=== PATIENT | male | born 1985 | race Caucasian/White ===

== ENCOUNTER 2018-05-28 13:57 | Emergency (ER) | payer BC ==
--- NOTE | 2018-05-28 14:58 | CR ---
Chest: Two views of the chest were obtained. Comparison: No prior chest x-ray. Heart size and mediastinum are normal. Lungs are clear. Bony structures are unremarkable. Impression: 1. Nothing acute is seen on two- view chest x-ray. Diagnostic code #1
--- NOTE | 2018-05-28 15:45 | EDM.PDOC ---
ED HPI GENERAL MEDICAL PROBLEM - General Chief Complaint: Chest Pain Stated Complaint: RAUL CHILDERS TO GET A EKG Time Seen by Provider: 05/28/18 14:06 Source of Information: Reports: Patient History Limitations: Reports: No Limitations - History of Present Illness INITIAL COMMENTS - FREE TEXT/NARRATIVE: The patient presents with left sided chest pain. The pain comes and goes and it is not associated with exertion. He has some shortness of breath at times. He has a slight cough. He has no congestion or runny nose. He has no abdominal pain, nausea or vomiting. He bess snot smoke. He has no history of hypertension, diabetes or hypercholesterolemia. He does have a family history of heart disease. His father had a double bypass recently. He went to the walk in clinic and they told him to come here. This started a few weeks ago. He also has some pain in his arms at times but he associates this with heavy lifting he is doing at work. Onset: Gradual Duration: Week(s): Location: Reports: Chest Quality: Reports: Sharp Severity: Moderate Improves with: Reports: None Worsens with: Reports: None Associated Symptoms: Reports: Chest Pain, Cough, Shortness of Breath. Denies: Fever/Chills, Headaches, Nausea/Vomiting Chest Pain Score (Numeric/FACES): 4 - Related Data Allergies Allergy/AdvReac Type Severity Reaction Status Date / Time pollen extracts Allergy Sneezing Verified 05/28/18 14:17 Past Medical History Psychiatric History: Reports: Anxiety Social & Family History - Tobacco Use Smoking Status *Q: Never Smoker - Caffeine Use Caffeine Use: Reports: Soda, Tea - Recreational Drug Use Recreational Drug Use: No ED ROS GENERAL - Review of Systems Review Of Systems: See Below Constitutional: Reports: No Symptoms HEENT: Reports: No Symptoms Respiratory: Reports: Shortness of Breath, Cough Cardiovascular: Reports: No Symptoms Endocrine: Reports: No Symptoms GI/Abdominal: Reports: No Symptoms : Reports: No Symptoms Musculoskeletal: Reports: No Symptoms ED EXAM, GENERAL - Physical Exam Exam: See Below Exam Limited By: No Limitations General Appearance: Alert, No Apparent Distress Ears: Normal External Exam Nose: Normal Inspection Head: Atraumatic, Normocephalic Neck: Normal Inspection Respiratory/Chest: No Respiratory Distress, Lungs Clear, Normal Breath Sounds Cardiovascular: Regular Rate, Rhythm, No Edema, No Murmur GI/Abdominal: Soft, Non-Tender, No Organomegaly, No Mass Extremities: Normal Inspection Neurological: Alert, Oriented, No Motor/Sensory Deficits EKG INTERPRETATION EKG Date: 05/28/18 Time: 14:21 Rhythm: NSR Rate (Beats/Min): 79 [employer]: Normal P-Wave: Present QRS: Normal ST-T: Normal QT: Normal Course - Vital Signs Last Recorded V/S: Last Vital Signs Temp 97.9 F 05/28/18 14:08 Pulse 90 05/28/18 14:08 Resp 11 L 05/28/18 14:08 BP 166/83 H 05/28/18 14:08 Pulse Ox 100 05/28/18 14:08 - Orders/Labs/Meds Orders: Active Orders 24 hr Category Date Time Status Cardiac Monitoring [RC] . DIRECTED Care 05/28/18 14:14 Active EKG Documentation Completion [RC] STAT Care 05/28/18 14:15 Active Labs: Laboratory Tests 05/28/18 05/28/18 Range/Units 14:45 14:45 WBC 5.77 (4.23-9.07) K/mm3 RBC 5.57 (4.63-6.08) M/mm3 Hgb 16.8 (13.7-17.5) gm/L Hct 47.4 (40.1-51.0) % MCV 85.1 (79.0-92.2) fl MCH 30.2 (25.7-32.2) pg MCHC 35.4 (32.2-35.5) g/dl RDW Std Deviation 38.8 (35.1-43.9) fL Plt Count 230 (163-337) K/mm3 MPV 10.7 (9.4-12.3) fl Neut % (Auto) 60.2 (34.0-67.9) % Lymph % (Auto) 30.0 (21.8-53.1) % [place] % (Auto) 7.8 (5.3-12.2) % Eos % (Auto) 1.6 (0.8-7.0) Baso % (Auto) 0.2 (0.1-1.2) % Neut # (Auto) 3.48 (1.78-5.38) K/mm3 Lymph # (Auto) 1.73 (1.32-3.57) K/mm3 [place]erry # (Auto) 0.45 (0.30-0.82) K/mm3 Eos # (Auto) 0.09 (0.04-0.54) K/mm3 Baso # (Auto) 0.01 (0.01-0.08) K/mm3 Sodium 139 (136-145) mEq/L Potassium 3.7 (3.5-5.1) mEq/L Chloride 103 (98-107) mEq/L Carbon Dioxide 27 (21-32) mEq/L Anion Gap 12.7 (5-15) BUN 14 (7-18) mg/dL Creatinine 1.0 (0.7-1.3) mg/dL Est Cr Clr Drug Dosing 115.04 mL/min Estimated GFR (MDRD) > 60 (>60) mL/min BUN/Creatinine Ratio 14.0 (14-18) Glucose 95 (74-106) mg/dL Calcium 9.6 (8.5-10.1) mg/dL Total Bilirubin 0.7 (0.2-1.0) mg/dL AST 36 (15-37) U/L ALT 67 H (16-63) U/L Alkaline Phosphatase 50 (46-116) U/L Troponin I < 0.017 (0.00-0.056) ng/mL Total Protein 8.2 (6.4-8.2) g/dl Albumin 4.3 (3.4-5.0) g/dl Globulin 3.9 gm/dL Albumin/Globulin Ratio 1.1 (1-2) - Re-Assessments/Exams Free Text/Narrative Re-Assessment/Exam: 05/28/18 15:45 His EKG and CXR look good. His CBC and CMP look good. His troponin is negative. I will discharge him home. Departure - Departure Time of Disposition: 15:50 Disposition: Home, Self-Care 01 Condition: Good Clinical Impression: Atypical chest pain Referrals: PCP,None [Primary Care Provider] - Narcisa Flaherty PA-C [[facility]] - Additional Instructions: Take motrin or tylenol for any pain. Please return if you are worse. - My Orders Last 24 Hours: My Active Orders 05/28/18 14:14 Cardiac Monitoring [RC] . DIRECTED 05/28/18 14:15 EKG Documentation Completion [RC] STAT - Assessment/Plan Last 24 Hours: My Active Orders 05/28/18 14:14 Cardiac Monitoring [RC] . DIRECTED 05/28/18 14:15 EKG Documentation Completion [RC] STAT
== END 2018-05-28 15:58 | disposition home or self-care (01) ==
LOC: JD.ED 13:57
DX: R07.89 Other chest pain (principal); Z88.8 Allergy status to other drugs, medicaments and biological substances; R06.02 Shortness of breath
CPT/HCPCS: 36415; 71046; 71046-26; 80053; 84484; 85025; 93005; 93010; 99284; 99285-25